=== PATIENT | female | born 1975 | race African-American/Black ===

== ENCOUNTER 2016-08-15 09:17 | Observation (INO) | payer OTHER ==
[2016-08-15] MEDS ORDERED: SODIUM CHLORIDE 1,000 ML IV STA (10:01)
--- NOTE | 2016-08-15 10:08 | PDOC ---
History of Present Illness - General Chief Complaint: Vaginal Bleeding Stated Complaint: VAGINAL BLEEDING, FATIGUE Time Seen by Provider: 08/15/16 09:48 History Source: Patient - History of Present Illness Timing/Duration: reports: constant Past History - Past Medical History Allergies/Adverse Reactions: Allergies Allergy/AdvReac Type Severity Reaction Status Date / Time lisinopril Allergy Verified 08/15/16 09:24 Home Medications: Ambulatory Orders Amlodipine Besylate [Norvasc -] 5 mg PO DAILY 01/16/16 Anemia: Yes GI Disorders: Yes (umbilical hernia) HTN: Yes Other medical history: FIBROIDS - Surgical History Abdominal Surgery: Yes (FIBROIDS) - Immunization History Immunization Up to Date: Yes - Psycho/Social/Smoking Cessation Hx Anxiety: No Suicidal Ideation: No Smoking Status: Yes Smoking History: Current every day smoker Have you smoked in the past 12 months: Yes Number of Cigarettes Smoked Daily: 5 Cigars Per Day: 0 Information on smoking cessation initiated: No 'Breaking Loose' booklet given: 01/16/16 Hx Alcohol Use: Yes (SOCIAL) Drug/Substance Use Hx: No Substance Use Type: None Hx Substance Use Treatment: No Review of Systems - Review of Systems Constitutional: Yes: Weakness. No: Fever Respiratory: No: Shortness of Breath Cardiac (ROS): Yes: Lightheadedness. No: Palpitations ABD/GI: No: Abdominal cramping : No: Dysuria *Physical Exam - Vital Signs Last Vital Signs Temp Pulse Resp BP Pulse Ox 98.3 F 102 H 18 155/90 97 08/15/16 09:21 08/15/16 09:21 08/15/16 09:21 08/15/16 09:21 08/15/16 09:21 - Physical Exam General Appearance: Yes: Appropriately Dressed. No: Apparent Distress HEENT: positive: Normal Voice Neck: positive: Supple Respiratory/Chest: negative: Respiratory Distress Gastrointestinal/Abdominal: positive: Soft. negative: Tender Integumentary: positive: Dry, Warm Neurologic: positive: Fully Oriented, Alert, Normal Mood/Affect ED Treatment Course - LABORATORY CBC & Chemistry Diagram: 08/15/16 10:00 08/15/16 10:00 Medical Decision Making - Medical Decision Making 08/15/16 10:01 40 yo F, h/o HTN, fibroids, s/p myomectomy 2 years ago at OSH, anemia w/ multiple transfusion, here w/ weakness and dizziness in setting of prolonged vaginal bleeding. States she is currently on her menses which lasts usually 4 days but currently has been bleeding x 10 days. States she is not currently bleeding heavily. No abd pain, sob or syncope See exam Symptomatic anemia H/o fibroids, menorrhagia, anemia w/ multiple transfusions in past Tachy in ED, otherwise stable w/ unremarkable exam -IVF -labs -transfuse -d/w biological science technician (Dr Han) -admit 08/15/16 10:42 08/15/16 11:24 08/15/16 12:20 Case discussed with FLIGHT SERVICE AGENT for Dr. Han, who is aware of admission. Patient's PMD, Dr Zaman, informed of the patient's visit and recommended admitting to hospitalist at this time *DC/Admit/Observation/Transfer Diagnosis at time of Disposition: Symptomatic anemia Fibroids Qualifiers: Uterine leiomyoma location: unspecified location Qualified Code(s): D25.9 - Leiomyoma of uterus, unspecified - Discharge Dispostion Condition at time of disposition: Fair Admit: Yes - Referrals Referrals: Mark Zaman [Primary Care Provider] -
[2016-08-15 10:32] LABS: MCH 20.5 pg (25.7-33.7); MCHC 31.1 g/dl (32.0-36.0); MEAN CELL VOLUME 65.9 fl (80-96); MEAN PLT VOLUME 7.3 fl (7.5-11.1); NEUTROPHILS 70.4 % (42.8-82.8); PLATELET COUNT 390 K/MM3 (134-434); RDW 19.8 % (11.6-15.6); WHITE BLOOD COUNT 4.7 K/mm3 (4.0-10.0)
[2016-08-15 10:44] LABS: INR 1.06 (0.82-1.09); PROTHROMBIN TIME (PATIENT) 11.7 SEC (9.98-11.88)
--- NOTE | 2016-08-15 10:46 | PDOC ---
*Physical Exam - Vital Signs Last Vital Signs Temp Pulse Resp BP Pulse Ox 98.3 F 102 H 18 155/90 97 08/15/16 09:21 08/15/16 09:21 08/15/16 09:21 08/15/16 09:21 08/15/16 09:21 ED Treatment Course - LABORATORY CBC & Chemistry Diagram: 08/15/16 10:00 08/15/16 10:00 Medical Decision Making - Medical Decision Making 08/15/16 10:26 Patient seen and evaluated with the nurse practitioner. I agree with the overall evaluation, assessment, and management with the following summary of visit: 40 y/o F h/o fibroids and anemia requiring transfusion p/w heavy vaginal bleeding and lightheaded/weak. check labs, ua ivf reassess
[2016-08-15 10:49] LABS: ALBUMIN 3.6 g/dl (3.4-5.0); ALK PHOS 100 U/L (45-117); ANION GAP 8 (8-16); BILIRUBIN,TOTAL 0.4 mg/dL (0.2-1.0); CALCIUM 8.6 mg/dL (8.5-10.1); CO2 28 mmol/L (21-32); COCKROFT - GAULT 112.4465; CREATININE 0.7 mg/dL (0.55-1.02); GLUCOSE,RANDOM 95 mg/dL (74-106); SGOT/AST 17 U/L (15-37); SGPT/ALT 17 U/L (12-78); TOT PROT 7.4 g/dl (6.4-8.2)
[2016-08-15 10:50] LABS: URINE APPEARANCE SLCLOUDY; URINE BILIRUBIN NEGATIVE (NEGATIVE); URINE COLOR YELLOW; URINE GLUCOSE (UA) NEGATIVE (NEGATIVE); URINE KETONE TRACE (NEGATIVE); URINE LEUK ESTERASE NEGATIVE (NEGATIVE); URINE NITRITE NEGATIVE (NEGATIVE); URINE UROBILINOGEN NEGATIVE E.U./dl (0.2-1.0)
[2016-08-15 10:53] LABS: URINE BLOOD 3+ (NEGATIVE); URINE PROTEIN 1+ (NEGATIVE)
[2016-08-15 11:37] LABS: ANISOCYTOSIS 2+; HYPOCHROMIA 2+; MICROCYTOSIS 2+; TARGET CELLS FEW
[2016-08-15 11:47] LABS: URINE MUCUS MANY; URINE RBC 8 /hpf (0-3); URINE WBC 4 /hpf (3-5)
--- NOTE | 2016-08-15 13:14 | HP ---
CHIEF COMPLAINT: PCP: HISTORY OF PRESENT ILLNESS: 40 yo F, h/o HTN, fibroids, s/p myomectomy 2 years ago at OSH, anemia w/ multiple transfusion, here w/ weakness and dizziness in setting of prolonged vaginal bleeding. States she is currently on her menses which lasts usually 4 days but currently has been bleeding x 10 days. States she is not currently bleeding heavily. No abd pain, sob or syncope ER course was notable for: (1) symptomatic low H/H (2) heavy vaginal bleeding (3) Recent Travel: denies PAST MEDICAL HISTORY: heavy vaginal bleeding, migraines PAST SURGICAL HISTORY: myomectomy Social History: Smoking:current smoker Alcohol:denies Drugs: denies Family History: Allergies lisinopril Allergy (Verified 08/15/16 09:24) HOME MEDICATIONS: Home Medications Medication Instructions Recorded Amlodipine Besylate [Norvasc -] 5 mg PO DAILY 01/16/16 REVIEW OF SYSTEMS CONSTITUTIONAL: Absent: fever, chills, diaphoresis, (+)generalized weakness, malaise, loss of appetite, weight change HEENT: Absent: rhinorrhea, nasal congestion, throat pain, throat swelling, difficulty swallowing, mouth swelling, ear pain, eye pain, visual changes CARDIOVASCULAR: Absent: chest pain, syncope, palpitations, irregular heart rate, lightheadedness , peripheral edema RESPIRATORY: Absent: cough, shortness of breath, dyspnea with exertion, orthopnea, wheezing, stridor, hemoptysis GASTROINTESTINAL: Absent: abdominal pain, abdominal distension, nausea, vomiting, diarrhea, constipation, melena, hematochezia, (+)heavy vaginal bleeding with clots GENITOURINARY: Absent: dysuria, frequency, urgency, hesitancy, hematuria, flank pain, genital pain MUSCULOSKELETAL: Absent: myalgia, arthralgia, joint swelling, back pain, neck pain SKIN: Absent: rash, itching, pallor HEMATOLOGIC/IMMUNOLOGIC: Absent: easy bleeding, easy bruising, lymphadenopathy, frequent infections ENDOCRINE: Absent: unexplained weight gain, unexplained weight loss, heat intolerance, cold intolerance NEUROLOGIC: Absent: headache, focal weakness or paresthesias, dizziness, unsteady gait, seizure, mental status changes, bladder or bowel incontinence PSYCHIATRIC: Absent: anxiety, depression, suicidal or homicidal ideation, hallucinations. PHYSICAL EXAMINATION GENERAL: Awake, alert, and fully oriented, in no acute distress.+feeling fatigue HEAD: Normal with no signs of trauma. EYES: Pupils equal, round and reactive to light, extraocular movements intact, sclera anicteric, conjunctiva clear. No lid lag. EARS, NOSE, THROAT: Ears normal, nares patent, oropharynx clear without exudates. Moist mucous membranes. NECK: Normal range of motion, supple without lymphadenopathy, JVD, or masses. LUNGS: Breath sounds equal, clear to auscultation bilaterally. No wheezes, and no crackles. No accessory muscle use. HEART: Regular rate and rhythm, normal S1 and S2 without murmur, rub or gallop. ABDOMEN: Soft, nontender, not distended, normoactive bowel sounds, no guarding, no rebound, no masses. No hepatomegaly or splenomegaly. MUSCULOSKELETAL: Normal range of motion at all joints. No bony deformities or tenderness. No CVA tenderness. UPPER EXTREMITIES: 2+ pulses, warm, well-perfused. No cyanosis. No clubbing. No peripheral edema. LOWER EXTREMITIES: 2+ pulses, warm, well-perfused. No calf tenderness. No peripheral edema. NEUROLOGICAL: Cranial nerves II-XII intact. Normal speech. Normal gait. PSYCHIATRIC: Cooperative. Good eye contact. Appropriate mood and affect. SKIN: Warm, dry, normal turgor, no rashes or lesions noted, normal capillary refill. ASSESSMENT/PLAN: This 40 yr old female with c/o heavy vaginal bleeding, feeling fatigue and symptomatic c/o with anemia with +tachycardia, denies SOB or CP 1. vaginal heavy bleeding -consult [facility] ACCOUNTANT 2. Anemia -type and screen -1 u PRBC -monitor v/s, cbc trend 3. admit with observation med surg. Visit type - Emergency Visit Emergency Visit: Yes ED Registration Date: 08/15/16 Care time: The patient presented to the Emergency Department on the above date and was hospitalized for further evaluation of their emergent condition. - New Patient This patient is new to me today: Yes Date on this admission: 08/15/16 - Critical Care Critical Care patient: No
[2016-08-15 15:00] VITALS: BMI 21.6
[2016-08-16 07:15] LABS: BASOPHIL 0.7 % (0-2.0); EOSINOPHIL 1.4 % (0-4.5); MCH 22.7 pg (25.7-33.7); MCHC 32.4 g/dl (32.0-36.0); MEAN CELL VOLUME 70.2 fl (80-96); MEAN PLT VOLUME 7.6 fl (7.5-11.1); NEUTROPHILS 60.1 % (42.8-82.8); PLATELET COUNT 355 K/MM3 (134-434); RDW 23.9 % (11.6-15.6); WHITE BLOOD COUNT 4.3 K/mm3 (4.0-10.0)
[2016-08-16 07:33] LABS: INR 1.06 (0.82-1.09); PROTHROMBIN TIME (PATIENT) 11.7 SEC (9.98-11.88)
[2016-08-16 07:36] LABS: ACTIVATED PTT 27.6 SECONDS (26.9-34.4)
[2016-08-16 07:41] LABS: ALBUMIN 3.2 g/dl (3.4-5.0); ANION GAP 11 (8-16); CALCIUM 8.3 mg/dL (8.5-10.1); CO2 25 mmol/L (21-32); GLUCOSE,RANDOM 75 mg/dL (74-106)
[2016-08-16 07:44] LABS: ALK PHOS 97 U/L (45-117); BILIRUBIN,TOTAL 0.8 mg/dL (0.2-1.0); CREATININE 0.7 mg/dL (0.55-1.02); SGOT/AST 18 U/L (15-37); SGPT/ALT 17 U/L (12-78); TOT PROT 7.1 g/dl (6.4-8.2)
[2016-08-16 09:03] VITALS: BP 130/98; PULSE 70; TEMP 98.6
[2016-08-16] MEDS ORDERED: amLODIPine BESYLATE 5 MG TABLET (FP) PO SCH (10:00)
--- NOTE | 2016-08-16 12:24 | DS ---
Physical Exam: SUBJECTIVE: Patient seen and examined by me at bedside. Patient given 1 unit of PRBC overnight. Currently not feeling any weakness or dizziness after the transfusion and reports the vaginal bleeding stopped. Patient reports having a myomectomy done for the uterine fibroids in the past as well as blood transfusions due to symptomatic anemia. Otherwise, patient reports feeling much better. Patient denies fever, chills, nausea, vomiting, abdominal pain, chest pain, palpitations, shortness of breath, dizziness, weakness. OBJECTIVE: Vital Signs Period Temp Pulse Resp BP Sys/Fortune Pulse Ox Last 24 Hr 97.9 F-98.8 F 69-84 18-20 120-135/70-98 100 PHYSICAL EXAM GENERAL: The patient is awake, alert, and fully oriented, in no acute distress. LUNGS: Breath sounds equal, clear to auscultation bilaterally, no wheezes, no crackles, no accessory muscle use. HEART: Regular rate and rhythm, S1, S2 without murmur, rub or gallop. ABDOMEN: Soft, nontender, nondistended, normoactive bowel sounds, no guarding, no rebound. No suprapubic tenderness. EXTREMITIES: No peripheral edema. NEUROLOGICAL: Normal speech and normal gait. SKIN: Warm, dry, normal turgor, no rashes or lesions noted. LABS Laboratory Results - last 24 hr 08/16/16 08/16/16 08/16/16 06:35 06:35 06:35 WBC 4.3 RBC 4.42 Hgb 10.0 L D Hct 31.0 L D MCV 70.2 L MCHC 32.4 RDW 23.9 H D Plt Count 355 MPV 7.6 Neutrophils % 60.1 Lymphocytes % 24.3 D Monocytes % 13.5 H Eosinophils % 1.4 Basophils % 0.7 INR 1.06 PTT (Actin FS) 27.6 Sodium 141 Potassium 3.9 Chloride 105 Carbon Dioxide 25 Anion Gap 11 BUN 7 D Creatinine 0.7 Creat Clearance w eGFR > 60 Random Glucose 75 D Calcium 8.3 L Total Bilirubin 0.8 D AST 18 ALT 17 Alkaline Phosphatase 97 Total Protein 7.1 Albumin 3.2 L HOSPITAL COURSE: Patient is a 40 year old female wit rodriguez PMHc of HTN, Uterine fibroids s/p myomectomy 2 years ago, and anemia secondary to blood blood loss fibroids who presented for prolonged vaginal bleeding during her menstrual period. Patient states she is currently on her period, which normally lasts about 4 days. However, patient was on day 10 and has had heavy bleeding. Patient on admission was not having current heavy bleeding but was feeling weak and dizzy. Patient's lab showed hgb of 7.9 and was given 1 unit of PRBC. Patient today reports her weakness and dizziness resolved after receiving one unit of PRBC. Repeat labs showed hgb of 7.9, hct of 31.0 with resolution of vaginal bleeding. Patient's OBGYN was contacted and patient was scheduled for an appointment Saturday (08/21/16) for further management. Patient stable for discharge and was told to also follow up with her PCP. Date of Admission:08/15/16 Date of Discharge: 08/16/16 Minutes to complete discharge: 35 Discharge Summary Reason For Visit: ANEMIA Current Active Problems Anemia (Acute) Fatigue (Acute) Symptomatic anemia (Acute) Fibroids (Chronic) Condition: Stable - Instructions Diet, Activity, Other Instructions: -You were admitted for symptomatic anemia from your heavy vaginal bleeding and was given 2 units of blood. -An appointment as been set up with your OBGYN for Saturday (08/21/16) with Dr. Han. -You may resume your regular diet and exercise -If you begin to have heavy vaginal bleeding or severe dizziness and weakness, return to the emergency department. -Please follow up with your Primary care doctor within a week. Referrals: Eber Han MD [Staff Physician] - Mark Zaman [Primary Care Provider] - Disposition: HOME - Home Medications Comprehensive Discharge Medication List: Ambulatory Orders Amlodipine Besylate [Norvasc -] 5 mg PO DAILY 01/16/16 This patient is new to me today: Yes Date on this admission: 08/17/16 Emergency Visit: Yes ED Registration Date: 08/15/16 Care time: The patient presented to the Emergency Department on the above date and was hospitalized for further evaluation of their emergent condition. Critical Care patient: No - Discharge Referral Referred to [facility] Med P.C.: No
--- NOTE | 2016-08-16 13:07 | PN ---
Teaching Attending Note Name of Resident: Elizabeth Badillo ATTENDING PHYSICIAN STATEMENT I saw and evaluated the patient. I reviewed the resident's note and discussed the case with the resident. I agree with the resident's findings and plan as documented. SUBJECTIVE:currently asymptomatic. states dizzyness and weakness resolved once blood transfusion began. states vaginal bleeding has also stopped. mild spotting yesterday and none noticed today. had D&C in the past for fibroids and also received blood transfusions at that time. denies CP, SOB,fever, chills, N/V /C/D OBJECTIVE: Last Vital Signs Temp Pulse Resp BP Pulse Ox 98.6 F 70 20 130/98 100 08/16/16 09:03 08/16/16 09:03 08/16/16 09:03 08/16/16 09:03 08/15/16 13:53 General NAD CV S1 S2 RRR no murmur/rub/gallop Lungs CTA B/L no wheezing/rales/rhonchi Abdomen soft NT/ND no suprapubic tenderness ASSESSMENT AND PLAN: 40yo F with PMH fibroids and HTN presented to the ER with dizzyness and weakness 1. Symptomatic anemia- due to acute blood loss from prolonged menses. s/p 2 unit PRBC transfused. appropriate response. bleeding has terminated. Resident spoke with operations support analyst who will see her as outpatient for follow up and possible further intervention. 2. HTN- controlled. cont norvasc 3. d/c home
== END 2016-08-16 12:58 | disposition home or self-care (01) ==
LOC: JER 09:17 → JERBED 12:19 → J6S 14:38
PROVIDERS: ADMIT Internal Medicine; ATTEND Internal Medicine
PROC: 30243N1 Transfusion of Nonautologous Red Blood Cells into Central Vein, Percutaneous Approach (ICD-10-PCS; principal; 2016-08-15)
PROC: 3E033GC Introduction of Other Therapeutic Substance into Peripheral Vein, Percutaneous Approach (ICD-10-PCS; 2016-08-15)
DX: D64.9 Anemia, unspecified (principal); D25.9 Leiomyoma of uterus, unspecified; I10 Essential (primary) hypertension; F17.210 Nicotine dependence, cigarettes, uncomplicated; R00.0 Tachycardia, unspecified; N93.9 Abnormal uterine and vaginal bleeding, unspecified
CPT/HCPCS: 36415; 36430; 80053; 81003; 81015; 84703; 85025; 85610; 85730; 86850; 86900; 86901; 86922; 99285-25; G0378; P9058